=== PATIENT | female | born 1970 | race African-American/Black ===

== ENCOUNTER → 2016-12-17 | Outpatient (CLI) | payer OTHER ==
[~2016-12-17] MED LIST: BENICAR PO; RISPERIDONE PO; SULAR PO; TRILEPTAL PO
--- NOTE | ~2016-12-17 | MR17 ---
[facility] A Service of [facility] & [facility] RADIOLOGY TEXT RESULTS PATIENT: SIERRA MULTANI LOCATION: CMRI : 66 UNIT #: [id number] AGE: [address]: KAREN HANSON APRN SEX: F ORDER DR: [id number] [facility] [address] [place], [place] [address] [id number] O MR#: [id number] Acc #: [id number] NAME: SIERRA MULTANI : 1970 SEX: F STUDY DATE/TIME: 12/17/2016 9:35 UNIT: [facility] ROOM: STUDY DESCRIPTION: MR Brain WWo Contrast Attending Physician: Karen Hanson Aprn Referring Physician: Karen Hanson Aprn Ordering Physician: Karen Hanson Aprn Primary Care Physician: Josef Davis Sr., M.D. MRI CENTER REPORT This report is preliminary unless electronic signature is present. REVISED REPORT SEE ADDENDUM EXAM MRI of the brain with and without contrast dated 12/17/2016. COMPARISON CT of head without contrast, dated 09/29/2006. HISTORY Patient has right-sided facial droop and weakness and numbness in the right extremities recently. Patient lost a 2 months ago and had her oldest daughter removed from her home. Shows also has diabetes and renal disease. FINDINGS Multisequence, multiplanar imaging of the brain was obtained with and without contrast. GFR measured greater than 60. 15 mL of MultiHance was administered intravenously. There appears to be restricted diffusion lesion in the mid to left paramidline aspect of the mid godfrey. It extends from anterior to posterior aspect. It is unclear if it is a single lesion or if there are 2 lesions adjacent to each other in the AP dimension. Overall it approximately measures 2.0 x 0.6 cm in overall axial dimension. Minimal associated increased T2 signal was also seen without any hemorrhage or significant mass effect. Encephalomalacic changes are noted in the right frontal lobe involving the cortex and underlying subcortical white matter with areas of cystic change and peripheral gliosis. It measures approximately 3.7 x 3.2 x 2.8 cm. Small cavum septum pellucidum and a slightly more prominent cavum septum vergae is seen. Multiple nonenhancing hyperintense T2-signal lesions are noted in the white matter particularly in the periventricular region and to a lesser degree in the subcortical white matter. Thick slices through the sella with the pituitary gland, pineal region and upper cervical spine are unremarkable. [facility] A Service of [facility] RADIOLOGY TEXT RESULTS PATIENT: SIERRA MULTANI LOCATION: CMRI : 66 UNIT #: [id number] AGE: [address]: KAREN HANSON APRN SEX: F ORDER DR: Imaged orbits with the ocular structures and paranasal sinuses do not demonstrate any significant abnormality. IMPRESSION 1. There appears to be a restricted diffusion lesion in the mid to left paramidline aspect of the mid godfrey with some increased T2 signal. 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 It is unclear if it is a single lesion or if there are 2 lesions adjacent to each other in the AP dimension. Approximately it measures 2.0 x 0.6 cm in overall axial dimension. 2. Multiple scattered nonenhancing hyperintense T2-signal lesions are noted in the supratentorial brain predominately in the periventricular white matter with some signal changes in the godfrey. They are likely related to chronic microvascular ischemic change based on age and statistics. Focal area of cystic encephalomalacic change with peripheral gliosis is seen in the superior and medial right frontal lobe from old insult. Mixed cavum septum pellucidum and vergae. 3. No enhancing solid intracranial mass. 4. Attempts are made to contact Dr. Karen Hanson at 4:25 p.m. on 12/17/2016. Findings were discussed with her in 1-2 hours. I suggested that the patient go to the ER and start treatment. Dictated by... Nik Aleman M.D. CPR/jt TD: 12/17/2016 18:28 JOB #: [id number] EXAM MRI brain ADDENDUM MRI brain with and without contrast dated 12/17/2016. ADDENDUM Attempts are made to contact Dr. Karen Hanson at 04:25 p.m. on 12/17/2016. Findings were subsequently discussed with her the same evening. I suggested her to send the patient to the emergency room for further neurology consult. [facility] A Service of [facility] RADIOLOGY TEXT RESULTS PATIENT: SIERRA MULTANI LOCATION: CMRI : 66 UNIT #: [id number] AGE: [address]: KAREN HANSON APRN SEX: F ORDER DR: Dictated by... Nik Aleman M.D. THIS IS AN ELECTRONICALLY VERIFIED REPORT Nik Aleman M.D. at 12/24/2016 2:00 PM CPR/ea TD: 12/17/2016 20:53 JOB #: [id number] MRI CENTER REPORT Page 1 of 1 COPY
[2016-12-17 10:46] LABS: POC - CREATININE 0.96 mg/dL (0.44-1.03); POC - GFR >60.0 mL/min (>60)
== END | disposition home or self-care (01) ==
LOC: CMRI 09:00
PROVIDERS: Nurse Practitioner
DX: R29.810 Facial weakness (principal); I10 Essential (primary) hypertension; R93.8 Abnormal findings on diagnostic imaging of other specified body structures
CPT/HCPCS: 70553; 82565; A9577